=== PATIENT | male | born 1940 | race Caucasian/White ===

== ENCOUNTER 2023-06-30 05:21 | Outpatient (CLI) | payer MEDICARE, BC, SELFPAY | END 2023-06-30 05:22 | disposition home or self-care (01) | LOC: AMB 07-04 13:15 | PROVIDERS: Visit Provider Family Medicine | DX: M25.561 Pain in right knee (principal); Z96.651 Presence of right artificial knee joint | CPT/HCPCS: A0425; A0429 ==

== ENCOUNTER 2023-06-30 05:53 | Emergency (ER) | payer MEDICARE, BC, SELFPAY ==
--- NOTE | 2023-06-30 05:57 | ED.GENADULT ---
HPI - General Adult General Time Seen by Provider: 05:57 Date Seen: 06/30/23 Chief complaint: Post Op Complication Stated complaint: Knee pain Time Seen by Provider: 06/30/23 05:57 Source: patient, EMS, RN notes reviewed and old records reviewed Mode of arrival: EMS Limitations: no limitations History of Present Illness HPI narrative: 83-year-old male who presents today with the leg pain. Patient had a total knee replacement last week, has had pain since but this evening was unable to get up and walk due to pain. He has been taking oxycodone which does seem to help. Denies chest pain, shortness of breath, fever. Patient has been getting home physical therapy for this. No new fall or injury. Last dose of oxycodone was approximately 12 hours ago, has been taking it every 6 hours. Related Data Home Medications Medication Instructions Recorded Confirmed allopurinol 100 mg tablet 100 mg PO DAILY 06/30/23 06/30/23 amlodipine 5 mg tablet 5 mg PO QPM 06/30/23 06/30/23 aspirin 81 mg tablet,delayed 81 mg PO DAILY 06/30/23 06/30/23 release atenolol 50 mg tablet 50 mg PO BID 06/30/23 06/30/23 duloxetine 20 mg capsule,delayed 20 mg PO BID 06/30/23 06/30/23 release metformin 500 mg tablet 500 mg PO BID 06/30/23 06/30/23 omeprazole 20 mg capsule,delayed 20 mg PO QAM 06/30/23 06/30/23 release oxycodone 5 mg tablet 5 mg PO Q4H 06/30/23 06/30/23 rosuvastatin 10 mg tablet 10 mg PO DAILY 06/30/23 06/30/23 tamsulosin 0.4 mg capsule 0.4 mg PO QPM 06/30/23 06/30/23 triamterene 37.5 1 tab PO DAILY 06/30/23 06/30/23 mg-hydrochlorothiazide 25 mg tablet Allergies Allergy/AdvReac Type Severity Reaction Status Date / Time levofloxacin Allergy Mild Hives Verified 06/30/23 06:24 lisinopril Allergy Mild Cough Verified 06/30/23 06:24 atorvastatin AdvReac Mild Diarrhea Verified 06/30/23 06:24 Review of Systems Status of ROS: Reports: 10 or more systems reviewed and unremarkable except as noted in History and below [facility] Medical History (Updated 06/30/23 @ 08:13 by Jered Sutherland MD) History of coronary angiogram ?Z98.890 - Other specified postprocedural states (ICD-10) Superficial thrombophlebitis of right upper extremity ?I80.8 - Phlebitis and thrombophlebitis of other sites (ICD-10) Palpitations ?R00.2 - Palpitations (ICD-10) NSTEMI (non-ST elevated myocardial infarction) ?I21.4 - Non-ST elevation (NSTEMI) myocardial infarction (ICD-10) Type 2 diabetes mellitus with hyperglycemia, without long-term current use of insulin ?E11.65 - Type 2 diabetes mellitus with hyperglycemia (ICD-10) Gout ?M10.9 - Gout, unspecified (ICD-10) Hyperlipidemia LDL goal <70 ?E78.5 - Hyperlipidemia, unspecified (ICD-10) Essential hypertension ?I10 - Essential (primary) hypertension (ICD-10) Esophageal reflux ?K21.9 - Gastro-esophageal reflux disease without esophagitis (ICD-10) Male erectile dysfunction, unspecified ?N52.9 - Male erectile dysfunction, unspecified (ICD-10) Coronary arteriosclerosis due to lipid rich plaque ?I25.10 - Atherosclerotic heart disease of [place] coronary artery without angina pectoris (ICD-10) ?I25.83 - Coronary atherosclerosis due to lipid rich plaque (ICD-10) Diabetic peripheral neuropathy ?E11.42 - Type 2 diabetes mellitus with diabetic polyneuropathy (ICD-10) Primary osteoarthritis of right knee ?M17.11 - Unilateral primary osteoarthritis, right knee (ICD-10) Coronary artery disease involving [place] coronary artery of [place] heart with angina pectoris ?I25.119 - Atherosclerotic heart disease of [place] coronary artery with unspecified angina pectoris (ICD-10) Monoclonal gammopathy ?D47.2 - Monoclonal gammopathy (ICD-10) Primary osteoarthritis of hip ?M16.10 - Unilateral primary osteoarthritis, unspecified hip (ICD-10) Urinary retention ?R33.9 - Retention of urine, unspecified (ICD-10) Hypomagnesemia ?E83.42 - Hypomagnesemia (ICD-10) Benign prostatic hyperplasia with urinary frequency ?N40.1 - Benign prostatic hyperplasia with lower urinary tract symptoms (ICD-10) ?R35.0 - Frequency of micturition (ICD-10) Hyponatremia ?E87.1 - Hypo-osmolality and hyponatremia (ICD-10) Surgical History (Updated 06/30/23 @ 08:13 by Jered Sutherland MD) History of total left hip arthroplasty ?Z96.642 - Presence of left artificial hip joint (ICD-10) History of hemorrhoidectomy ?Z98.890 - Other specified postprocedural states (ICD-10) History of cholecystectomy ?Z90.49 - Acquired absence of other specified parts of digestive tract (ICD-10) S/P total knee arthroplasty ?Z96.659 - Presence of unspecified artificial knee joint (ICD-10) Social History Smoking Status: Never smoker Second hand tobacco smoke exposure: No How often do you have a drink containing alcohol: never How often do you have six or more drinks on one occasion: Never AUDIT-C Alcohol total score: 0 Non-prescribed substance use: denies use Exam Narrative: Exam Narrative: General: Well-developed and well-nourished, no acute distress Head: Atraumatic and normocephalic Eyes: Pupils are equal reactive, extraocular motions intact, conjunctiva clear ENT: External nose and ears are normal, posterior pharynx without erythema or exudate Neck: No midline cervical tenderness, full spontaneous range of motion the neck, trachea midline, no adenopathy Heart: Regular rate and rhythm no murmurs or thrills Lungs: Clear to auscultation bilaterally without wheezes or crackles Abdomen: Soft, nontender, nondistended with active bowel sounds Musculoskeletal: Dressing on the right knee clean dry and intact. Right knee with effusion but no warmth or redness. Ecchymosis of the right lower leg with a 3 cm blister on the medial heel and hindfoot. Neurologic: Awake, alert, and oriented x3, no gross focal neurologic deficits, cranial nerves intact as tested Psych: Mood and affect are appropriate Skin: No rashes Const: Vital Signs, click to edit/add: Vital Signs - 24 hr 06/30/23 06:02 06/30/23 07:26 Temperature 98.2 F Pulse Rate [Right Pulse Oximeter] 89 58 L Respiratory Rate 18 16 Blood Pressure [Ri ght Upper Arm] 151/73 H 154/77 H Pulse Oximetry 96 Oxygen Delivery Me thod Room Air Room Air Course Course ED Course: Patient seen and examined, prior records reviewed. Patient is status post right knee replacement, comes in complaining of pain. On exam, postoperative changes of the right knee and lower leg, no warmth or redness of the knee, joint effusion but no evidence for infection. Labs ordered along with x-ray of the hand CT scan evaluate for DVT. Oxycodone will be given in the emergency department and trial of ambulation. Reevaluation(s) Time of Reevaluation #1: 07:26 Reevaluation #1: Labs independently interpreted by me with mild hyponatremia, otherwise well anemia and no leukocytosis. X-ray independently interpreted by me does not demonstrate any acute effusion. Time of Reevaluation #2: 08:12 Reevaluation #2: X-ray of the knee and panel interpreted by me with small effusion but no acute findings otherwise. Ultrasound is pending but appears negative independently interpreted by me. If ultrasound is negative, patient be discharged with continued pain management and follow-up with his surgeon. Vital Signs Vital signs: Initial Vital Signs Temperature 98.2 F 06/30/23 06:02 Temperature Source Temporal Artery Scan 06/30/23 06:02 Pulse Rate 89 06/30/23 06:02 Respiratory Rate 18 06/30/23 06:02 Blood Pressure 151/73 H 06/30/23 06:02 Blood Pressure Mean 99 06/30/23 06:02 Blood Pressure Position Sitting 06/30/23 06:02 Oxygen Delivery Method Room Air 06/30/23 06:02 Vital Signs Temperature 98.2 F 06/30/23 06:02 Pulse Rate 89 06/30/23 06:02 Respiratory Rate 18 06/30/23 06:02 Blood Pressure 151/73 H 06/30/23 06:02 Oxygen Delivery Method Room Air 06/30/23 06:02 Temperature 98.2 F 06/30/23 06:02 Pulse Rate 58 L 06/30/23 07:26 Respiratory Rate 16 06/30/23 07:26 Blood Pressure 154/77 H 06/30/23 07:26 Pulse Oximetry 96 06/30/23 07:26 Oxygen Delivery Method Room Air 06/30/23 07:26 Medical Decision Making Medical Records Medical records reviewed: Yes I reviewed the patient's medical records Lab Data Lab results reviewed: Yes I reviewed the patient's lab results Labs: Lab Results 06/30/23 Range/Units 06:17 WBC 8.77 (4.50-11.00) K/uL RBC 4.08 L (4.30-5.90) m/uL Hgb 11.8 L (13.5-17.5) gm/dL Hct 35.2 L (37.0-53.0) % MCV 86 (80-100) fL MCH 29 (26-34) pg MCHC 34 (32-36) gm/dL RDW Coeff of [place] 13.6 (11.5-15.5) % Plt Count 398 (140-440) K/uL Neut % (Auto) 73.6 H (42.0-72.0) % Lymph % (Auto) 12.8 L (20-44) % [place] % (Auto) 8.1 (0.0-11.0) % Eos % (Auto) 1.5 (0.0-7.0) % Baso % (Auto) 0.6 (0.0-3.0) % Neut # (Auto) 6.50 (1.7-7.0) K/uL Lymph # (Auto) 1.10 (0.90-2.90) K/uL [place] # (Auto) 0.70 (0.00-0.90) K/UL Eos # (Auto) 0.13 (0.00-0.50) K/uL Baso # (Auto) 0.05 (0.00-0.30) K/uL Abs Immat Gran (auto) 0.30 (0.00-0.30) K/uL Imm/Tot Granulo (auto) 3.4 % Sodium 131 L (135-149) mmol/L Potassium 3.9 (3.6-5.1) mmol/L Chloride 92 L (96-114) mmol/L Carbon Dioxide 29 (20-32) mmol/L Anion Gap 10 (7-15) mEq/L BUN 21 (7-30) mg/dL Creatinine 0.8 (0.5-1.5) mg/dL Estimated Creat Clear 56.05 Estimated GFR 89 ml/min Glucose 169 H (60-115) mg/dL Calcium 9.9 (8.4-10.6) mg/dL Discharge Plan Discharge Clinical Impression: Post-operative pain, S/P total knee arthroplasty Patient Disposition: Home w/ Parent or Adult Condition: Stable Instructions: Pain Management After Surgery (DC) Additional Instructions: Take Tylenol and ibuprofen as needed for pain, take oxycodone for more severe pain. Call your surgeon to discuss follow-up Activity Level: Activity as Tolerated Discharge Diet: Regular Prescriptions: No Action amlodipine 5 mg tablet 5 mg PO QPM allopurinol 100 mg tablet 100 mg PO DAILY aspirin 81 mg tablet,delayed release (DR/EC) 81 mg PO DAILY metformin 500 mg tablet 500 mg PO BID omeprazole 20 mg capsule,delayed release(DR/EC) 20 mg PO QAM atenolol 50 mg tablet 50 mg PO BID oxycodone 5 mg tablet 5 mg PO Q4H duloxetine 20 mg capsule,delayed release(DR/EC) 20 mg PO BID tamsulosin 0.4 mg capsule 0.4 mg PO QPM triamterene-hydrochlorothiazid 37.5-25 mg tablet 1 tab PO DAILY rosuvastatin 10 mg tablet 10 mg PO DAILY Follow Up/Referrals: Provider,Not a Local [Primary Care Provider] - Stand Alone Forms: [facility] Info Instructions
[2023-06-30 06:02] VITALS: BP 151/73; PULSE 89; RESP 18; TEMP 36.8; BMI 27.4
--- NOTE | 2023-06-30 06:02 | CRLHL7_ITS ---
For Patients: As a result of the Cures Act, medical imaging exams and procedure reports are released immediately into your electronic medical record. You may view this report before your referring provider. If you have questions, please contact your health care provider. Indication: POST OP PAIN Technique: Right knee 3 views. Comparison: None. Impression: Right knee arthroplasty with patellar resurfacing. No evidence of periprosthetic fracture or lucency. Small knee effusion. Dictated by Esteban Prince MD @ 06/30/2023 8:10:30 AM (Electronically Signed)
--- NOTE | 2023-06-30 06:02 | CRLHL7_ITS ---
For Patients: As a result of the Century Cures Act, medical imaging exams and procedure reports are released immediately into your electronic medical record. You may view this report before your referring provider. If you have questions, please contact your health care provider. INDICATION: right leg pain. s/p TKR x 1 week ago. TECHNIQUE: Ultrasound venous duplex lower right extremity. Compression venous exam was performed using lowery-scale, color Doppler, and spectral Doppler analysis. COMPARISON: None. FINDINGS: Deep veins: Sonographic imaging demonstrates the right common femoral, deep femoral, superficial femoral, popliteal, posterior tibial and the contralateral left common femoral veins to be fully compressible with normal color Doppler blood flow. Superficial veins: Greater saphenous vein is fully compressible. No popliteal cyst. IMPRESSION: No sign of deep venous thrombosis. Dictated by Esteban Prince MD @ 06/30/2023 8:33:41 AM (Electronically Signed)
[2023-06-30] MEDS: OXYCODONE 5 MG TABLET PO (06:05)
[2023-06-30 06:35] LABS: Basophils Absolute Auto 0.05 K/uL (0.00-0.30); Basophils Percent Auto 0.6 % (0.0-3.0); Eosinophils Absolute Auto 0.13 K/uL (0.00-0.50); Eosinophils Percent Auto 1.5 % (0.0-7.0); Hematocrit 35.2 % (37.0-53.0); Hemoglobin* 11.8 gm/dL (13.5-17.5); Immature Granulocytes Pct Auto 3.4 %; Lymphocytes Percent Auto 12.8 % (20-44); Mean Corpuscular HGB Conc 34 gm/dL (32-36); Mean Corpuscular Hemoglobin 29 pg (26-34); Mean Corpuscular Volume 86 fL (80-100); Monocytes Percent Auto 8.1 % (0.0-11.0); Neutrophils Percent Auto 73.6 % (42.0-72.0); Platelet Count* 398 K/uL (140-440); RDW Coefficient of Variation % 13.6 % (11.5-15.5); Red Blood Count 4.08 m/uL (4.30-5.90); White Blood Count* 8.77 K/uL (4.50-11.00)
[2023-06-30 06:50] LABS: Chloride* 92 mmol/L (96-114); Sodium* 131 mmol/L (135-149)
[2023-06-30 06:51] LABS: Potassium* 3.9 mmol/L (3.6-5.1)
[2023-06-30 06:53] LABS: Creatinine* 0.8 mg/dL (0.5-1.5); Est. Creatinine Clearance* 56.05; Estimated Glomerular Filt Rate 89 ml/min
[2023-06-30 06:54] LABS: Anion Gap 10 mEq/L (7-15); Blood Urea Nitrogen* 21 mg/dL (7-30); Calcium* 9.9 mg/dL (8.4-10.6); Carbon Dioxide* 29 mmol/L (20-32); Glucose* 169 mg/dL (60-115)
[2023-06-30 07:20] LABS: Slide Review Reflex Yes
[2023-06-30 07:26] VITALS: BP 154/77; PULSE 58; RESP 16; O2SAT 96
--- NOTE | 2023-06-30 07:55 | ED.NURSE ---
Patient voided 200cc of clear, yellow urine in urinal. Patient tearful with the depression in the past month of losing his and dog. Offered emotional support. Patients daughter at bedside.
[2023-06-30 08:30] VITALS: BP 149/69; PULSE 80; RESP 16; TEMP 35.8; O2SAT 96
[2023-06-30 08:31] LABS: Slide Review Acceptable Review (Acceptable)
== END 2023-06-30 08:36 | disposition home or self-care (01) ==
PROVIDERS: Emergency Provider Family Medicine
DX: G89.18 Other acute postprocedural pain (principal); M79.604 Pain in right leg
CPT/HCPCS: 36415; 73562; 80048; 85025; 93971; 97016; 97110; 97140; 99284; 99285; A9270

== ENCOUNTER 2023-07-02 12:38 | Emergency (ER) | payer MEDICARE, BC, SELFPAY ==
[2023-07-02 12:47] VITALS: BP 143/98; PULSE 57; RESP 18; TEMP 36.9; O2SAT 97; BMI 27.4
--- NOTE | 2023-07-02 13:34 | ED_ITS ---
HPI - General Adult General Chief complaint: Abdominal Pain Stated complaint: No bowel movement for 9 days Time Seen by Provider: 07/02/23 12:55 History of Present Illness HPI narrative: This 83-year-old male comes in reporting constipation with no bowel movement for the past 9 days. He had his right knee replaced 10 days ago and has been taking oxycodone. He did take some MiraLax and senna last evening. He states that his knee pain is improved but continues to take oxycodone. Related Data Home Medications Medication Instructions Recorded Confirmed allopurinol 100 mg tablet 100 mg PO DAILY 06/30/23 07/02/23 amlodipine 5 mg tablet 5 mg PO QPM 06/30/23 07/02/23 aspirin 81 mg tablet,delayed 81 mg PO DAILY 06/30/23 07/02/23 release atenolol 50 mg tablet 50 mg PO BID 06/30/23 07/02/23 duloxetine 20 mg capsule,delayed 20 mg PO BID 06/30/23 07/02/23 release metformin 500 mg tablet 500 mg PO BID 06/30/23 07/02/23 omeprazole 20 mg capsule,delayed 20 mg PO QAM 06/30/23 07/02/23 release oxycodone 5 mg tablet 5 mg PO Q4H 06/30/23 07/02/23 rosuvastatin 10 mg tablet 10 mg PO DAILY 06/30/23 07/02/23 tamsulosin 0.4 mg capsule 0.4 mg PO QPM 06/30/23 07/02/23 triamterene 37.5 1 tab PO DAILY 06/30/23 07/02/23 mg-hydrochlorothiazide 25 mg tablet Previous Rx's Medication Instructions Recorded ketorolac 10 mg tablet 10 mg PO Q8H 5 days #15 tabs 07/02/23 Allergies Allergy/AdvReac Type Severity Reaction Status Date / Time levofloxacin Allergy Mild Hives Verified 07/02/23 12:28 lisinopril Allergy Mild Cough Verified 07/02/23 12:28 atorvastatin AdvReac Mild Diarrhea Verified 07/02/23 12:28 Review of Systems Status of ROS: Reports: 10 or more systems reviewed and unremarkable except as noted in History and below Narrative: Constitutional: No fevers, no weight gain or loss. Eyes: No discharge. No vision changes. HENT: No congestion, no sore throat, no ear pain. Cardiovascular: No chest pain, no palpitations. Respiratory: No shortness of breath, no wheezes, no cough. Gastrointestinal: No vomiting, no diarrhea. Constipation. Genitourinary: No dysuria, no hematuria. Musculoskeletal: Recent right knee replacement. Skin: No rashes, no pruritis. Neurological: No dizziness, weakness, sensory change, speech change. Endo/Heme/Allergies: No bruising or bleeding. No polydipsia. Pysch: no suicidality, no anxiety, no insomnia. All other systems reviewed and are negative. [facility] Medical History (Updated 07/02/23 @ 13:42 by Titus Coppola MD) History of coronary angiogram ?Z98.890 - Other specified postprocedural states (ICD-10) Superficial thrombophlebitis of right upper extremity ?I80.8 - Phlebitis and thrombophlebitis of other sites (ICD-10) Palpitations ?R00.2 - Palpitations (ICD-10) NSTEMI (non-ST elevated myocardial infarction) ?I21.4 - Non-ST elevation (NSTEMI) myocardial infarction (ICD-10) Type 2 diabetes mellitus with hyperglycemia, without long-term current use of insulin ?E11.65 - Type 2 diabetes mellitus with hyperglycemia (ICD-10) Gout ?M10.9 - Gout, unspecified (ICD-10) Hyperlipidemia LDL goal <70 ?E78.5 - Hyperlipidemia, unspecified (ICD-10) Essential hypertension ?I10 - Essential (primary) hypertension (ICD-10) Esophageal reflux ?K21.9 - Gastro-esophageal reflux disease without esophagitis (ICD-10) Male erectile dysfunction, unspecified ?N52.9 - Male erectile dysfunction, unspecified (ICD-10) Coronary arteriosclerosis due to lipid rich plaque ?I25.10 - Atherosclerotic heart disease of [place] coronary artery without angina pectoris (ICD-10) ?I25.83 - Coronary atherosclerosis due to lipid rich plaque (ICD-10) Diabetic peripheral neuropathy ?E11.42 - Type 2 diabetes mellitus with diabetic polyneuropathy (ICD-10) Primary osteoarthritis of right knee ?M17.11 - Unilateral primary osteoarthritis, right knee (ICD-10) Coronary artery disease involving [place] coronary artery of [place] heart with angina pectoris ?I25.119 - Atherosclerotic heart disease of [place] coronary artery with unspecified angina pectoris (ICD-10) Monoclonal gammopathy ?D47.2 - Monoclonal gammopathy (ICD-10) Primary osteoarthritis of hip ?M16.10 - Unilateral primary osteoarthritis, unspecified hip (ICD-10) Urinary retention ?R33.9 - Retention of urine, unspecified (ICD-10) Hypomagnesemia ?E83.42 - Hypomagnesemia (ICD-10) Benign prostatic hyperplasia with urinary frequency ?N40.1 - Benign prostatic hyperplasia with lower urinary tract symptoms (ICD- 10) ?R35.0 - Frequency of micturition (ICD-10) Hyponatremia ?E87.1 - Hypo-osmolality and hyponatremia (ICD-10) Surgical History (Updated 06/30/23 @ 08:13 by Jered Sutherland MD) History of total left hip arthroplasty ?Z96.642 - Presence of left artificial hip joint (ICD-10) History of hemorrhoidectomy ?Z98.890 - Other specified postprocedural states (ICD-10) History of cholecystectomy ?Z90.49 - Acquired absence of other specified parts of digestive tract (ICD- 10) S/P total knee arthroplasty ?Z96.659 - Presence of unspecified artificial knee joint (ICD-10) Social History Smoking Status: Never smoker Second hand tobacco smoke exposure: No How often do you have a drink containing alcohol: never How often do you have six or more drinks on one occasion: Never AUDIT-C Alcohol total score: 0 Non-prescribed substance use: denies use Exam Narrative: Exam Narrative: Constitutional: Well-developed, well-nourished, no acute distress. HEENT: Normocephalic, atraumatic. Neck: Normal range of motion. Nontender. Supple. Heart: Regular. No murmurs. Normal rate. Intact distal pulses. Lungs: Clear to auscultation. No chest discomfort. No wheezes, rhonchi, or rales. Abdomen: Decreased bowel sounds. No rebound tenderness. Genitalia: Deferred. Back: No midline tenderness. Normal range of motion. Extremities: Surgical dressing in place over the right anterior knee from recent knee replacement surgery. Skin: Intact. No rash. Warm. No erythema or pallor. Neurologic: No altered sensation. No weakness. Alert and oriented. Psychiatric: No suicidality. No anxiety or depression. No insomnia. Nursing notes and vitals signs are reviewed. Const: Vital Signs, click to edit/add: Vital Signs - 24 hr 07/02/23 12:47 Temperature 98.4 F Pulse Rate [Pulse Oximeter] 57 L Respiratory Rate 18 Blood Pressure [Ri ght Upper Arm] 143/98 H Pulse Oximetry 97 Oxygen Delivery Me thod Room Air Course Vital Signs Vital signs: Initial Vital Signs Temperature 98.4 F 07/02/23 12:47 Temperature Source Temporal Artery Scan 07/02/23 12:47 Pulse Rate 57 L 07/02/23 12:47 Pulse Rhythm Regular 07/02/23 12:47 Respiratory Rate 18 07/02/23 12:47 Blood Pressure 143/98 H 07/02/23 12:47 Blood Pressure Mean 113 H 07/02/23 12:47 Pulse Oximetry 97 07/02/23 12:47 Oxygen Delivery Method Room Air 07/02/23 12:47 Vital Signs Temperature 98.4 F 07/02/23 12:47 Pulse Rate 57 L 07/02/23 12:47 Respiratory Rate 18 07/02/23 12:47 Blood Pressure 143/98 H 07/02/23 12:47 Pulse Oximetry 97 07/02/23 12:47 Oxygen Delivery Method Room Air 07/02/23 12:47 Temperature 98.4 F 07/02/23 12:47 Pulse Rate 57 L 07/02/23 12:47 Respiratory Rate 18 07/02/23 12:47 Blood Pressure 143/98 H 07/02/23 12:47 Pulse Oximetry 97 07/02/23 12:47 Oxygen Delivery Method Room Air 07/02/23 12:47 Medical Decision Making MDM Narrative Medical decision making narrative: This patient had a recent knee surgery and has been taking opiates which have caused significant constipation. He states that his pain is well enough controlled. I recommended that he discontinue the oxycodone if possible. I did provide a prescription for Toradol that may be used as needed and directed. I did also describe various strategies for attending to constipation including enema and oral medications. Patient states that he will go home and administer an enema. I also recommended that he increase the dosings of his oral medications until he gets results. Discharge Plan Discharge Clinical Impression: Constipation Condition: Stable Additional Instructions: Use [id number] treatments for constipation as needed and directed. Use enemas, MiraLax, senna, Dulcolax, Metamucil, magnesium citrate, and others as needed and directed. It is best to discontinue oxycodone if pain can be adequately managed without using opiates. A prescription for Toradol as provided. Prescriptions: New ketorolac 10 mg tablet 10 mg PO Q8H 5 Days Qty: 15 0RF No Action amlodipine 5 mg tablet 5 mg PO QPM allopurinol 100 mg tablet 100 mg PO DAILY aspirin 81 mg tablet,delayed release (DR/EC) 81 mg PO DAILY metformin 500 mg tablet 500 mg PO BID omeprazole 20 mg capsule,delayed release(DR/EC) 20 mg PO QAM atenolol 50 mg tablet 50 mg PO BID oxycodone 5 mg tablet 5 mg PO Q4H duloxetine 20 mg capsule,delayed release(DR/EC) 20 mg PO BID tamsulosin 0.4 mg capsule 0.4 mg PO QPM triamterene-hydrochlorothiazid 37.5-25 mg tablet 1 tab PO DAILY rosuvastatin 10 mg tablet 10 mg PO DAILY Follow Up/Referrals: Provider,Not a Local [Primary Care Provider] - Stand Alone [facility]: [facility] Info Inst[facility]
== END 2023-07-02 13:51 | disposition home or self-care (01) ==
PROVIDERS: Emergency Provider Emergency Medicine Emergency Medical Services
DX: K59.00 Constipation, unspecified (principal)
CPT/HCPCS: 99283; 99284

== ENCOUNTER 2023-07-09 14:30 | Outpatient (RCR) | payer MEDICARE, BC, SELFPAY | END 2023-09-08 16:03 | disposition home or self-care (01) | PROVIDERS: Visit Provider Orthopaedic Surgery | DX: Z47.1 Aftercare following joint replacement surgery (principal); M25.561 Pain in right knee; Z51.89 Encounter for other specified aftercare | CPT/HCPCS: 97016; 97110; 97116; 97140; 97161; 97530; 99283 ==